=== PATIENT | female | born 1960 | race Caucasian/White ===

== ENCOUNTER 2016-11-15 10:21 | Inpatient (IN) | payer BC ==
[2016-11-04 10:04] LABS: BASOPHILS 0.4 %; BASOPHILS ABSOLUTE 0.02 10/3/uL (0.0-0.16); EOSINOPHILS 1.9 %; HEMATOCRIT 45.1 % (36.0-48.0); HEMOGLOBIN 15.3 g/dL (12.0-16.0); IMMATURE GRANULOCYTES 0.4 %; IMMATURE GRANULOCYTES ABSOLUTE 0.02 10/3/uL (0.0-0.11); LYMPHOCYTES 36.8 %; MEAN CORPUS HGB CONC 33.9 g/dL (32.0-36.0); MEAN CORPUSCULAR HEMOGLOB 31.2 pg (26.0-34.0); MEAN CORPUSCULAR VOLUME 91.9 fL (80-100); MEAN PLATELET VOLUME 9.8 fL (9.2-13.0); MONOCYTES 9.5 %; MONOCYTES ABSOLUTE 0.49 10/3/uL (0.21-1.20); NEUTROPHILS ABSOLUTE 2.64 10/3/uL (2.02-8.40); PLATELET COUNT 231 10/3/uL (150-400); RBC DISTRIBUTION WIDTH 13.2 % (12.0-16.0); RED CELL COUNT 4.91 10/6/uL (4.0-5.6); WHITE BLOOD CELLS 5.2 10/3/uL (4.5-10.5)
[2016-11-04 10:06] LABS: MANUAL DIFF NO %
[2016-11-04 10:07] LABS: PARTIAL THROMBO TIME 26.1 SEC (22.5-37.2); PROTIME (NOT ORD) 12.8 SEC (12.0-14.5)
[2016-11-04 10:23] LABS: A/G RATIO 1.3 (0.7-1.9); ALBUMIN 4.2 G/DL (3.5-5.0); ALKALINE PHOSPHATASE 110 U/L (45-117); BUN (BLOOD UREA NITROGEN) 32 MG/DL (6-23); CALCIUM, SERUM 9.4 MG/DL (8.5-10.4); CHLORIDE, SERUM 108 MMOL/L (96-112); CO2 (CARBON DIOXIDE) 28 MMOL/L (24-34); GFR AFRICAN AMERICAN 83 ML/MIN (>=60); GFR NON AFRICAN AMERICAN 71 ML/MIN (>=60); GLOBULIN 3.3 G/DL (2.5-4.1); GLUCOSE, SERUM 86 MG/DL (60-99); POTASSIUM, SERUM 4.3 MMOL/L (3.5-5.3); SGOT(AST) 36 U/L (5-40); SGPT(ALT) 150 U/L (5-65); SODIUM, SERUM 143 MMOL/L (135-148); TOTAL BILIRUBIN 0.5 MG/DL (0-1.2); TOTAL PROTEIN 7.5 G/DL (6.0-8.5)
[2016-11-04 10:43] LABS: ASCORBIC ACID (UR NOT ORDER) NEG (NEG); BILIRUBIN, URINE NEGATIVE (NEG); KETONE, URINE NEGATIVE (NEG); LEUKOCYTE ESTERASE(NOT OR TRACE (NEG); WBC (NOT ORDERED) (RFLEX) 11 (0-5)
--- NOTE | ~2016-11-15 | OP ---
Record Of Operation [facility] [address] [place]. [address] NAME: NANCY PENA : 60 STATUS : ADM IN PAT#: [id number] AGE: 56 ADM/REG DATE : 11/15/16 MR#: [id number] REPORT SERV DATE: 11/15/16 DICTATED BY: BETTIE ZAFAR DATE: 11/15/16 REPORT STATUS : Draft TRANSCRIBED BY: MODL DATE: 11/15/16 DATE OF PROCEDURE: 11/15/2016 PREOPERATIVE DIAGNOSIS: Right hip arthritis. POSTOPERATIVE DIAGNOSIS: Right hip arthritis. PROCEDURE PERFORMED: Right total hip arthroplasty. SURGEON: Bettie Zafar M.D. [employer] ASSOCIATE: Rosario Handy. ANESTHESIA: General with local infusion. PROCEDURE IN DETAIL: The patient is clearly identified and after obtaining informed consent is brought to the operating room at [facility] where here the patient is induced under general anesthesia and subsequently placed in the left lateral decubitus position. This concluded, the thigh and flank are prepped and draped in the usual manner. A time-out procedure successfully performed and after registering the knee and marking the anatomy through an approximately 4.5 incision, the skin is divided. The fascial planes are divided. The lateral fascia then is divided. Hemostasis is obtained with electrocautery and a Charnley retractor is applied. The piriformis is identified, tagged, divided, and retracted over the sciatic nerve felt deep in the wound. At which point, the mini approach to the hip is formed with dividing the capsule in a mini approach with a cuff of tissues remaining at the femoral side to accomplish repair at the conclusion of the case. Dislocating the hip, end-stage arthritic changes are noted. The tissue surrounding the femoral neck are protected with the Hohmann retractor and the femoral neck cut is made according to preoperative templating. This concluded, the femoral head is removed. The acetabulum is exposed. The labral and fluvial tissues are removed and reaming is performed. Subsequently trialing with the appropriate trial, the permanent acetabular components placed with the [place]. At which point, the acetabular trial component is then placed. The proximal femur is then addressed. The structures posteromedial to the greater trochanter are removed and this concluded the cookie-cutter canal finder lateralizer and reaming is performed. This concluded, broaching is performed and with excellent fit-fill and stability for the implant trialing is performed finding excellent leg length, stability, no impingement, good kickback, no push-pull, and the lesser trochanter palpably at the appropriate distance from the ischium when compared to preoperative templating. The trials were felt to be appropriate. These are all then removed and the permanent implants are then carefully applied uneventfully. Copious irrigation is then performed with same stability and findings noted after insertion. At which point, the joint then is carefully closed in layers including capsule, piriformis, lateral fascia, deep tissues, and skin. Aquacel dressing is applied and the patient is then allowed to awaken, is placed supine and is returned to the recovery room in stable condition having tolerated the procedure well. ESTIMATED BLOOD LOSS: 200 mL. Record Of Operation [facility] [id number] [place]. [address] NAME: NANCY PENA : 60 STATUS : ADM IN PAT#: [id number] AGE: 56 ADM/REG DATE : 11/15/16 MR#: [id number] REPORT SERV DATE: 11/15/16 DICTATED BY: BETTIE ZAFAR DATE: 11/15/16 REPORT STATUS : Draft TRANSCRIBED BY: RUSSEL DATE: 11/15/16 FLUIDS: 1200. TOURNIQUET TIME: None. PATHOLOGY: Sent specimens. MICROBIOLOGY: None. COMPLICATIONS: None. SPONGE AND NEEDLE COUNTS: Reportedly correct. ANTIBIOTICS: Administered appropriately preoperatively and ordered to be discontinued within 23 hours. IMPLANTS: DePuy hip system, femur [place], size 5 high offset, +5/36 ceramic head, acetabulum, [place] size 52 with a +4 neutral liner, and no screws. MICHELLE/RUSSEL Bettie Zafar M.D. / [id number] CC: Bettie Zafar M.D.
[~2016-11-15 10:21] MED LIST: LEXAPRO10 PO; MOBIC15 MG PO; ULTRAM50 PO; ZESTORETIC1 TAB PO
[2016-11-16 04:30] LABS: HEMATOCRIT 35.3 % (36.0-48.0)
[2016-11-16 04:38] LABS: INTERNATIONAL NORMAL RATI 1.2 UNITS (-); PROTIME (NOT ORD) 14.6 SEC (12.0-14.5)
[2016-11-16 04:49] LABS: CALCIUM, SERUM 8.6 MG/DL (8.5-10.4); CHLORIDE, SERUM 106 MMOL/L (96-112); CO2 (CARBON DIOXIDE) 27 MMOL/L (24-34); CREATININE 0.78 MG/DL (0.55-1.02); GFR AFRICAN AMERICAN 98 ML/MIN (>=60); GFR NON AFRICAN AMERICAN 85 ML/MIN (>=60); POTASSIUM, SERUM 4.1 MMOL/L (3.5-5.3); SODIUM, SERUM 141 MMOL/L (135-148)
[2016-11-16 04:50] LABS: BUN (BLOOD UREA NITROGEN) 21 MG/DL (6-23); GLUCOSE, SERUM 171 MG/DL (60-99)
[2016-11-16] MEDS ORDERED: C5 (13:52)
[2016-11-16] MEDS ORDERED: OXYCOD PO (13:52)
[2017-02-17] MEDS ORDERED: GARLIC PO (08:23)
[2017-02-17] MEDS ORDERED: IBU-200200 MG PO (08:24)
[2017-02-22] MEDS ORDERED: C5 PO (13:08)
[2017-02-22] MEDS ORDERED: OXYCOD PO (13:08)
== END 2016-11-16 16:26 | disposition home or self-care (01) | DRG 470 ==
LOC: SDC/OF 10:21 → PACU 15:35 → 3JRC 16:16
PROVIDERS: Orthopaedic Surgery
PROC: 0SR902Z Replacement of Right Hip Joint with Metal on Polyethylene Synthetic Substitute, Open Approach (ICD-10-PCS; principal; 2016-11-15 12:30)
DX: M16.11 Unilateral primary osteoarthritis, right hip (principal); I10 Essential (primary) hypertension; F32.9 Major depressive disorder, single episode, unspecified
CPT/HCPCS: 36415; 71020; 72170; 80048; 80053; 81001; 82962; 85014; 85018; 85025; 85610; 85730; 86850; 86900; 86901; 87641; 88304; 88311; 97110-GP; 97116-GP; 97150-GP; 97161-GP; 97165-GO; 97535-GO; A9270-GY; C1776; J0690; J1885; J2250; J2270; J2370; J2405; J2710; J2795; J3010